=== PATIENT | female | born 1965 | race Two or more races ===

== ENCOUNTER → 2025-01-10 | Outpatient (CLI) | payer MEDICARE, MEDICAID, SELFPAY ==
--- NOTE | 2025-01-10 08:45 | XR_ITS ---
Examination: Screening digital mammography, bilateral Computer aided detection 3-D breast Tomosynthesis, bilateral Date and time of exam: January 10, 2025 0814 hours Comparison June 08, 2020 Indication: Screening Technique: Nonmagnified MLO, CC views of the breasts to been obtained, reconstructed from 3-D Tomosynthesis images. R2 computer aided detection program utilized for evaluation of suspicious masses and/or abnormal calcifications. 3-D Tomosynthesis images obtained. Findings: The breasts are heterogeneously dense, which may obscure small masses 10 mm focal asymmetry outer left breast 8.9 cm from the nipple Benign calcifications Impression: BI-RADS Category 0: Incomplete: Need additional imaging evaluation 10 mm focal asymmetry outer left breast 8.9 cm from the nipple Recommend follow-up spot tomographic views upper outer quadrant left breast left breast sonography to complete the workup.
== END | disposition home or self-care (01) ==
LOC: CDIM 08:05
PROVIDERS: PCP Nurse Practitioner Family; Referring Provider Nurse Practitioner Family; Visit Provider Nurse Practitioner Family
DX: Z12.31 Encounter for screening mammogram for malignant neoplasm of breast (principal); R92.8 Other abnormal and inconclusive findings on diagnostic imaging of breast; N64.89 Other specified disorders of breast
CPT/HCPCS: 77063; 77067

== ENCOUNTER → 2025-02-01 | Outpatient (CLI) | payer MEDICARE, MEDICAID, SELFPAY ==
--- NOTE | 2025-02-01 10:15 | XR_ITS ---
Examination: Breast ultrasound, unilateral, left complete Date and time of exam: February 01, 2025 0939 hrs. Indications: Mammogram January 10, 2025 10 mm focal asymmetry outer left breast Technique: Real-time jackman scale ultrasonographic imaging performed left breast including all 4 quadrants as well as nipple retroareolar and axillary region. Findings: No cystic or solid mass Impression: BI-RADS category 1: Negative study
== END | disposition home or self-care (01) ==
PROVIDERS: PCP Nurse Practitioner Family; Referring Provider Nurse Practitioner Family; Visit Provider Nurse Practitioner Family
DX: R92.8 Other abnormal and inconclusive findings on diagnostic imaging of breast (principal)
CPT/HCPCS: 76641

== ENCOUNTER → 2025-02-07 | Outpatient (CLI) | payer MEDICARE, MEDICAID, SELFPAY ==
--- NOTE | 2025-02-07 08:37 | XR_ITS ---
Examination: Ultrasound soft tissue extremity left wrist Exam date and time:: February 07, 2025 0843 hours INDICATIONS: Palpable lump left breast note is beginning one week ago TECHNIQUE AND FINDINGS: Grayscale sonographic images soft tissue wrist Edema in the wrist with no cystic or solid mass IMPRESSION: No cystic or solid mass, consider MRI right wrist without contrast follow-up
== END | disposition home or self-care (01) ==
LOC: CDIM 07:39
PROVIDERS: PCP Nurse Practitioner Family; Referring Provider Nurse Practitioner Family; Visit Provider Nurse Practitioner Family
DX: R22.32 Localized swelling, mass and lump, left upper limb (principal)
CPT/HCPCS: 76882